=== PATIENT | female | born 1960 | race Caucasian/White ===

== ENCOUNTER 2017-10-30 18:49 | Emergency (ER) | payer OTHER ==
[2017-10-30 19:05] VITALS: BP 124/83
[2017-10-30] MEDS ORDERED: TDAP ADULT 0.5 ML INJ (BOOSTRIX) IM ONE (19:14)
--- NOTE | 2017-10-30 19:38 | EDPHY ---
H & P Stated Complaint: Lac on R knuckle Time Seen by Provider: 10/30/17 19:46 HPI/ROS: HPI: This is a 57-year-old female who presents with Chief Complaint: Laceration on Right knuckle Location: Right knuckle Quality: Laceration Duration: Prior to arrival Signs and Symptoms: No bleeding, no radiation, no numbness, no weakness, no tingling, no incontinence, no decreased range of motion, no swelling, no pain, no fever Timing: Acute Severity: Mild Context: Patient is right-hand dominant, presents with accidentally cutting her right knuckle on a knife while painting prior to arrival. She denies any weakness, paresthesias, decreased range of motion. She reports that she felt mild pain initially but none at the moment. Unsure of last tetanus booster. Modifying Factors: Direct pressure Comment: ROS: A comprehensive 10 system review of systems is otherwise negative aside from elements mentioned in the history of present illness. MEDICAL/SURGICAL/SOCIAL HISTORY: Medical history: Ulcerative colitis, glaucoma Surgical history: Denies Social history: . Photo Tech. Nonsmoker. CONSTITUTIONAL: Extremely polite and cooperative adult white female, appears younger than stated age, awake and alert, no obvious distress HEENT: Atraumatic and normocephalic. NECK: supple EXTREMITIES: 2/2 pulses, strength 5/5, right middle finger over MCP joint shows 2 cm, vertical, simple, deep laceration with tendon exposure showing partial involvement by the knife of the medial 1/3 but surprisingly DIP/PIP/MCP flexion/extension intact with good light touch sensation. no deformities, no clubbing, no cyanosis or edema. NEUROLOGICAL: no focal neuro deficits. GCS 15. Light touch sensation intact. SKIN: Warm and dry, no erythema. no rash. Good capillary refill. Source: Patient Exam Limitations: No limitations - Personal History Current Tetanus/Diphtheria Vaccine: Unsure Current Tetanus Diphtheria and Acellular Pertussis (TDAP): Unsure - Medical/Surgical History Hx Asthma: No Hx Chronic Respiratory Disease: No Hx Diabetes: No Hx Cardiac Disease: No Hx Renal Disease: No Hx Cirrhosis: No Hx Alcoholism: No Hx HIV/AIDS: No Hx Splenectomy or Spleen Trauma: No Other PMH: ulcertive colitis, glaucoma - Social History Smoking Status: Never smoked Constitutional: Initial Vital Signs Temperature (C) 36.9 C 10/30/17 19:03 Heart Rate 72 10/30/17 19:03 Respiratory Rate 16 10/30/17 19:03 Blood Pressure 124/83 H 10/30/17 19:03 O2 Sat (%) 96 10/30/17 19:03 O2 Delivery Mode Room Air Allergies/Adverse Reactions: No Known Drug Allergies Allergy (Verified 10/30/17 19:02) Home Medications: Medication Instructions Recorded NK [No Known Home Meds] 10/30/17 Medical Decision Making Procedures: Procedure: Laceration repair. Verbal consent was obtained from the patient. The 3 cm, simple, deep laceration on the right anterior middle finger was anesthetized in the usual fashion using 4 mL of 1% lidocaine without epinephrine. The wound was irrigated , draped and explored to its base with a gloved finger. There were no deep structures involved. + tendon injury was identified. The wound was repaired with #2, 5 0 Prolene. Good hemostasis was achieved and patient tolerated procedure well. The procedure was performed by myself. Procedure: Splint placement. A right middle finger aluminum splint was applied by the Emergency Room help desk technician. After application of the splint I returned and re-examined the patient. The splint was adequately immobilizing the joint and distal to the splint the patient's circulation and sensation was intact. ED Course/Re-evaluation: Tetanus booster given. partial tendon laceration noted Irrigated copiously, laceration repair, dressing and aluminum finger splint applied. Patient is to follow up with Hand surgery regarding her tendon laceration. No signs of neurovascular compromise/tenting of skin/compartment syndrome/ extremities and joints examined above and below area of concern and are neurovascularly intact. This patient was seen under the supervision of my secondary supervising physician. I evaluated care for this patient independently. Discussed this patient with Dr. Dumont. Differential Diagnosis: Differential diagnosis includes but is not limited to fracture, foreign body, tendon injury, nerve injury. - Data Points Medications Given: Discontinued Medications Diphtheria/Tetanus/Acell Pertussis (Boostrix) 0.5 ml IM .ONCE ONE Stop: 10/30/17 19:15 Last Admin: 10/30/17 19:16 Dose: 0.5 ml Departure - Departure Disposition: Home, Routine, Self-Care Clinical Impression: Laceration of right middle finger with tendon involvement Condition: Good Instructions: Finger Laceration (ED), Tendon Laceration (ED) Additional Instructions: Keep the dressing/splint dry and in place until seen by [facility]. Take Tylenol 650 mg every 4 hours and/or Ibuprofen 600 mg every 8 hours with food as needed for pain. Apply ice for 30 minutes at a time; 2-3 times per day for the next 1-2 days. Follow up with [facility] in 3-5 days at which time they will evaluate whether tendon was completely and recommend with you if conservative management versus surgery is indicated. Follow-Up: Please follow-up as noted above. Follow-up sooner if your condition worsens or if you develop any new problems. Call as soon as possible for an appointment. Be clear when you call for an appointment that this is an Emergency Department follow-up. Contact the Emergency Department if you have trouble arranging follow-up care. Our referrals are not based on your insurance network. When time allows, contact your insurance carrier to verify the referral physician is in your plan. If not, get a referral for an in-networking engineer. Referrals: TAMIKO MCKEON MD [Primary Care Provider] - As per Instructions Kelin Bryant MD [Medical Doctor] - As per Instructions
--- NOTE | 2017-10-31 10:59 | ASMTCMCOM ---
CM Note CM Note Notes: Pt. called [facility] after discharge on 10/30 and stated that the specialist on her discharge paperwork could not see her for two weeks. This staff writer spoke with Grazyna at Dr. Stephanie Bryant's office [phone]. Grazyna stated that Dr. Bryant was in surgery for two days but could see the pt. on Saturday in the [place] office. This staff writer provided the pt.'s information and Grazyna stated she will call her to schedule. Date Signed: 10/31/2017 10:58 AM Electronically Signed By:Camryn Guerra LCSW
== END 2017-10-30 20:06 | disposition home or self-care (01) ==
PROC: 0HQFXZZ Repair Right Hand Skin, External Approach (ICD-10-PCS; principal; 2017-10-30)
DX: S61.212A Laceration without foreign body of right middle finger without damage to nail, initial encounter (principal); W26.0XXA Contact with knife, initial encounter; Z23 Encounter for immunization
CPT/HCPCS: L3925